=== PATIENT | male | born 1985 | race Caucasian/White ===

== ENCOUNTER → 2018-07-06 | Outpatient (CLI) | payer OTHER ==
[~2018-07-06] MED LIST: 0.9 % SODIUM CHLORIDE 10 ML VIAL ONE; BUPIVACAINE MPF 0.25% 30 ML VIAL. ONE; IOHEXOL 300 MG/ML 50 ML VIAL. ONE; LIDOCAINE 1% PF 30 ML VIAL. ONE; methylPREDNISolone ACETATE 80 MG/ML VIAL. ONE
== END | disposition home or self-care (01) ==
LOC: SURG 11:23
PROVIDERS: ATTEND Anesthesiology Pain Medicine
DX: M54.14 Radiculopathy, thoracic region (principal); M79.18 Myalgia, other site; Z79.899 Other long term (current) drug therapy; F17.210 Nicotine dependence, cigarettes, uncomplicated; M17.10 Unilateral primary osteoarthritis, unspecified knee; Z98.890 Other specified postprocedural states
CPT/HCPCS: 62321; J1040; J2001; J3490; Q9967; 64490

== ENCOUNTER → 2018-09-29 | Outpatient (CLI) | payer OTHER ==
[~2018-09-29] MED LIST changes: -BUPIVACAINE MPF 0.25% 30 ML VIAL. ONE; +DEXAMETHASONE SOD PHOS 10 MG/ML VIAL ONE; -methylPREDNISolone ACETATE 80 MG/ML VIAL. ONE
== END | disposition home or self-care (01) ==
LOC: SURG 14:45
PROVIDERS: ATTEND Anesthesiology Pain Medicine
DX: M54.14 Radiculopathy, thoracic region (principal); M19.90 Unspecified osteoarthritis, unspecified site; Z79.899 Other long term (current) drug therapy
CPT/HCPCS: 62321; J1100; J2001; Q9967

== ENCOUNTER 2018-12-21 12:56 | Emergency (ER) | payer OTHER ==
[~2018-12-21] VITALS: Ht 180.3 cm; Wt 95.3 kg
[2018-12-21] MEDS ORDERED: IV NORMAL SALINE 1,000ML 1,000 ML IV SCH (13:04)
--- NOTE | 2018-12-21 13:09 | PHYS DOC ---
Adult General Chief Complaint Chief Complaint: NAUSEA/VOMITING/DIARRHEA HPI HPI Patient is a 33-year-old male who presents with complaint of nausea with vomiting and diarrhea that has been present for approximately 2 weeks. Patient states that he had about a 3 day reprieve from symptoms but then they returned several days ago. He states that symptoms have been so bad that he had a syncopal episode at the house last night. He states that he believes that was because he just not keeping any fluids down. He states that he has had no abdominal pain or cramping. He also denies any particularly foul odor to the stool. Patient states that he is feeling very weak all over is about all beyond the vomiting and diarrhea.[] Review of Systems Review of Systems Constitutional: Denies fever or chills [] Respiratory: Denies cough or shortness of breath [] Cardiovascular: No additional information not addressed in HPI [] GI: Denies abdominal pain. Complains of vomiting and diarrhea [] Integument: Denies rash or skin lesions [] Neurologic: Denies headache, focal weakness or sensory changes [] All other systems were reviewed and found to be within normal limits, except as documented in this note. Physical Exam Physical Exam Constitutional: Well developed, well nourished, no acute distress, non-toxic appearance. [] HENT: Normocephalic, atraumatic, bilateral external ears normal, oropharynx moist, no oral exudates, nose normal. [] Eyes: PERRLA, EOMI, conjunctiva normal, no discharge. [] Neck: Normal range of motion, no tenderness, supple, no stridor. [] Cardiovascular: Regular rate and rhythm[] Lungs & Thorax: Bilateral breath sounds clear to auscultation [] Abdomen: Bowel sounds normal, soft, no tenderness. [] Skin: Warm, dry, no erythema, no rash. [] Extremities: No tenderness, no cyanosis, no clubbing, ROM intact, no edema. [] Neurologic: Alert and oriented X 3, no focal deficits noted. [] EKG EKG [] Radiology/Procedures Radiology/Procedures [] Course & Med Decision Making Course & Med Decision Making Pertinent Labs and Imaging studies reviewed. (See chart for details) [] Dragon Disclaimer Dragon Disclaimer This electronic medical record was generated, in whole or in part, using a voice recognition dictation system. Departure Departure: Impression: Primary Impression: Gastroenteritis Disposition: HOME, SELF-CARE Condition: STABLE Referrals: ANN PATEL PA-C (PCP) Patient Instructions: Viral Gastroenteritis Scripts Diphenoxylate Hcl/Atropine (LOMOTIL TABLET) 1 Each Tablet 1 TAB PO TID PRN for DIARRHEA, #15 TAB Prov: DEMARCO CERVANTES Jr. DO 12/21/18 Ondansetron Hcl (ZOFRAN) 4 Mg Tablet 4 MG PO Q6HRS PRN for NAUSEA, #15 TAB Prov: DEMARCO CERVANTES Jr. DO 12/21/18 DEMARCO CERVANTES Jr. DO December 21, 2018 13:09
[2018-12-21] MEDS ORDERED: ONDANSETRON PF 4 MG/2 ML VIAL. IV ONE (13:15)
[2018-12-21 13:29] LABS: BASO % 1 % (0-3); EOS # 0.1 x10^3/uL (0.0-0.7); EOS % 2 % (0-3); HEMATOCRIT 46.3 % (39.0-53.0); HEMOGLOBIN 15.9 g/dL (13.0-17.5); LYMPH # 1.7 x10^3/uL (1.0-4.8); LYMPH % 25 % (24-48); MEAN CORPUSCULAR HEMOGLOBIN 32 pg (25-35); MEAN CORPUSCULAR HGB CONC 34 g/dL (31-37); MEAN CORPUSCULAR VOLUME 93 fL (79-100); MONO # 0.4 x10^3/uL (0.0-1.1); MONO % 6 % (0-9); NEUT # 4.4 x10^3uL (1.8-7.7); NEUT % 66 % (31-73); PLATELET COUNT 432 x10^3/uL (140-400); RED BLOOD COUNT 4.98 x10^6/uL (4.30-5.70); RED CELL DISTRIBUTION WIDTH 12.5 % (11.5-14.5); WHITE BLOOD COUNT 6.7 x10^3/uL (4.0-11.0)
[2018-12-21 13:45] LABS: ALBUMIN 4.5 g/dL (3.4-5.0); ALBUMIN/GLOBULIN RATIO 1.2 (1.0-1.7); CALCIUM 9.9 mg/dL (8.5-10.1); CREATININE 0.9 mg/dL (0.7-1.3); GFR 96.6; POTASSIUM 3.8 mmol/L (3.5-5.1); TOTAL BILIRUBIN 0.5 mg/dL (0.2-1.0); TOTAL PROTEIN 8.2 g/dL (6.4-8.2)
[2018-12-21 14:00] VITALS: BP 127/79
[2018-12-21 14:51] LABS: BACTERIA,URINE 0 /HPF (0-FEW); BILIRUBIN,URINE NEG (NEG); CLARITY,URINE CLEAR; COLOR,URINE YELLOW; GLUCOSE,URINE NEG (NEG); NITRITE,URINE NEG (NEG); RBC,URINE 0 /HPF (0-2); SQUAMOUS EPITHELIAL CELL,UR OCC /LPF; UROBILINOGEN,URINE 0.2 mg/dL (0.2 mg/dL); WBC,URINE 0 /HPF (0-4)
[2018-12-21] MEDS ORDERED: DIPHENOXYLATE/ATROPINE TABLET. PO ONE (15:15)
[2018-12-21] MEDS ORDERED: ONDA4TAB7 PO (15:26)
[2018-12-21] MEDS ORDERED: DIPH1TAB PO (15:26)
== END 2018-12-21 15:28 | disposition home or self-care (01) ==
LOC: ER 12:56
DX: K52.9 Noninfective gastroenteritis and colitis, unspecified (principal)
CPT/HCPCS: 36415; 80053; 81001; 83690; 85025; 96361; 96374; 99284; J2405; J7030

== ENCOUNTER → 2019-06-23 | Outpatient (CLI) | payer OTHER ==
[~2019-06-23] MED LIST changes: -0.9 % SODIUM CHLORIDE 10 ML VIAL ONE; -DEXAMETHASONE SOD PHOS 10 MG/ML VIAL ONE; +DIPH1TAB PO; +HYDR-2763 PO; -IOHEXOL 300 MG/ML 50 ML VIAL. ONE; -LIDOCAINE 1% PF 30 ML VIAL. ONE; +ONDA4TAB7 PO; +TIZA4TAB2 PO
[2019-06-23 14:23] VITALS: BP 138/84
== END | disposition home or self-care (01) ==
LOC: SURG 13:53
PROVIDERS: ATTEND Anesthesiology Pain Medicine
DX: M47.24 Other spondylosis with radiculopathy, thoracic region (principal); M17.12 Unilateral primary osteoarthritis, left knee; F17.200 Nicotine dependence, unspecified, uncomplicated; Z79.899 Other long term (current) drug therapy
CPT/HCPCS: 99214

== ENCOUNTER → 2019-09-14 | Outpatient (CLI) | payer OTHER ==
[~2019-09-14] MED LIST changes: +HYALURONATE SODIUM 20 MG/2 ML SYRINGE. ONE; +LIDOCAINE 1% PF 30 ML VIAL. ONE
[2019-09-14 15:03] VITALS: BP 158/100
== END ==
LOC: SURG 14:14
PROVIDERS: ATTEND Anesthesiology Pain Medicine
DX: M17.12 Unilateral primary osteoarthritis, left knee (principal); F17.210 Nicotine dependence, cigarettes, uncomplicated
CPT/HCPCS: 20610; 77002; J2001; 20611